=== PATIENT | female | born 1985 | race Caucasian/White ===

== ENCOUNTER → 2016-06-29 | Outpatient (REF) | payer OTHER | LOC: M LAB REF 16:50 | PROVIDERS: ATTEND Specialist | DX: Z34.83 Encounter for supervision of other normal pregnancy, third trimester (principal) ==

== ENCOUNTER 2016-07-06 23:32 | Inpatient (IN) | payer OTHER ==
[~2016-07-06] VITALS: Ht 172.7 cm; Wt 113.0 kg
[2016-07-07] MEDS ORDERED: PRENTAB9 PO (00:46)
[2016-07-07] MEDS ORDERED: LR 1,000 ML IV SCH (01:23)
[2016-07-07] MEDS ORDERED: LACTATED RINGER'S 1000 ML IV STA (01:23)
[2016-07-07] MEDS ORDERED: BUTORPHANOL 2 MG/ML INJ (J0595) IV ONE (01:30)
[2016-07-07] MEDS ORDERED: PROMETHAZINE INJ 25 MG/ML VIAL (J2550) IM ONE (01:30)
[2016-07-07 01:46] LABS: MEAN CORPUSCULAR HEMOGLOBIN 27.3 pg (27.0-33.0); MEAN CORPUSCULAR HGB CONC 33.6 g/dl (32.0-36.5); MEAN CORPUSCULAR VOLUME 81.3 fl (80.0-96.0); RED CELL DISTRIBUTION WIDTH 13.3 % (11.5-14.5); WHITE BLOOD COUNT 16.7 K/mm3 (4.0-10.0)
[2016-07-07] MEDS ORDERED: OXYTOCIN DRIP 30 UNITS in APPROPRIATE DILUENT 1 EA IV SCH (02:07)
[2016-07-07] MEDS ORDERED: RHOGAM 300 MCG (1500 IU) INJ (J2790) IM SCH (02:15)
[2016-07-07] MEDS ORDERED: PROMETHAZINE 25 MG TAB PO PRN (02:15)
[2016-07-07] MEDS ORDERED: DOCUSATE SODIUM 100 MG CAP PO PRN (02:15)
[2016-07-07] MEDS ORDERED: DIBUCAINE 1% OINTMENT 30GM TOP PRN (02:15)
[2016-07-07] MEDS ORDERED: ONDANSETRON 4MG/2ML VIAL (J2405) IV PRN (02:15)
[2016-07-07] MEDS ORDERED: MEASLES,MUMPS,RUBELLA VACCINE INJ (MMR-II) (90707) SC SCH (02:15)
[2016-07-07 04:03] VITALS: BP 130/60
[2016-07-07 06:15] VITALS: BP 132/65
[2016-07-07] MEDS ORDERED: PRENATAL VITAMIN TAB PO SCH (09:00)
[2016-07-07] MEDS: ACETAMINOPHEN 500 MG TAB PO PRN ×2 (11:23→16:47)
[2016-07-07 18:00] VITALS: BP 128/72
[2016-07-07] MEDS ORDERED: OXYTOCIN INJ 10 UNITS/ML VIAL (J2590) As Ordered ONE (18:19)
[2016-07-07] MEDS: PRENATAL VITAMIN TAB PO SCH (19:55)
[2016-07-07] MEDS: IBUPROFEN 800 MG TAB PO PRN (21:19)
[2016-07-08] MEDS: LR 1,000 ML IV SCH ×3 (02:07→18:07)
[2016-07-08 05:43] VITALS: BP 133/73
[2016-07-08] MEDS: IBUPROFEN 800 MG TAB PO PRN ×2 (08:17→16:11)
[2016-07-08] MEDS: guaiFENesin DM LIQ 10ML UD PO PRN ×2 (17:26→21:42)
[2016-07-08 18:00] VITALS: BP 137/63
[2016-07-08] MEDS: PRENATAL VITAMIN TAB PO SCH (21:42)
[2016-07-09] MEDS: LR 1,000 ML IV SCH ×3 (02:07→07:35)
[2016-07-09] MEDS: ACETAMINOPHEN 500 MG TAB PO PRN (04:42)
[2016-07-09] MEDS ORDERED: ACETAMINOPHEN TAB 650MG DOSE (2X325MG) PO ONE (04:45)
[2016-07-09 05:52] VITALS: BP 139/66
[2016-07-09] MEDS ORDERED: IBUP-1114 PO (09:13)
[2016-07-09] MEDS ORDERED: ACET50TA PO (09:13)
[2016-07-09] MEDS ORDERED: ROBIMIS PO (09:15)
== END 2016-07-09 11:37 | disposition home or self-care (01) | DRG 775 ==
LOC: M LDO 23:32 → M LDI 07-07 00:51 → M OBS 07-07 04:00
PROVIDERS: ADMIT Obstetrics & Gynecology; ATTEND Obstetrics & Gynecology
PROC: 10E0XZZ Delivery of Products of Conception, External Approach (ICD-10-PCS; principal; 2016-07-07)
DX: O62.3 Precipitate labor (principal); Z3A.37 37 weeks gestation of pregnancy; O99.214 Obesity complicating childbirth; Z68.33 Body mass index [BMI] 33.0-33.9, adult; E66.9 Obesity, unspecified; Z37.0 Single live birth

== ENCOUNTER 2017-01-29 10:02 | Emergency (ER) | payer OTHER ==
[~2017-01-29] VITALS: Ht 172.7 cm; Wt 109.7 kg
[~2017-01-29 10:02] MED LIST: ACET50TA PO; IBUP-1114 PO; PRENTAB9 PO; ROBIMIS PO
[2017-01-29] MEDS ORDERED: CLAR10CA3 PO (10:14)
[2017-01-29] MEDS ORDERED: LIDOCAINE 2% W/EPIN INJ 20ML **PRES FREE INJ ONE (11:30)
[2017-01-29] MEDS ORDERED: LIDOCAINE 2% MDV 20 ML VIAL SC ONE (11:45)
[2017-01-29 13:19] VITALS: BP 150/82
== END 2017-01-29 13:20 | disposition home or self-care (01) ==
LOC: M ED 10:02
DX: N76.4 Abscess of vulva (principal); Z79.899 Other long term (current) drug therapy; Z88.0 Allergy status to penicillin; Z88.8 Allergy status to other drugs, medicaments and biological substances; Z87.42 Personal history of other diseases of the female genital tract

== ENCOUNTER 2017-05-01 20:13 | Emergency (ER) | payer OTHER ==
[~2017-05-01] VITALS: Ht 172.7 cm; Wt 107.3 kg
[~2017-05-01 20:13] MED LIST changes: +CLAR10CA3 PO
[2017-05-01 20:21] VITALS: BP 136/76
[2017-05-01] MEDS ORDERED: TYLE500T78 PO (20:25)
[2017-05-01] MEDS ORDERED: MULTLIQ7 PO (20:25)
[2017-05-01] MEDS ORDERED: LEVA1TAB2 PO (21:37)
[2017-05-01] MEDS ORDERED: DIFL150T PO (21:39)
== END 2017-05-01 21:46 | disposition home or self-care (01) ==
LOC: M ED 20:13
DX: N90.7 Vulvar cyst (principal); Z79.899 Other long term (current) drug therapy; Z88.0 Allergy status to penicillin

== ENCOUNTER 2017-06-10 13:11 | Day surgery (SDC) | payer OTHER ==
[2017-06-10] MEDS: LR 1,000 ML IV (13:50)
[2017-06-10] MEDS ORDERED: MIDAZOLAM INJ 2 MG/2 ML VIAL (J2250) As Ordered (13:51)
[2017-06-10 13:58] LABS: HEMATOCRIT 40.6 % (36.0-47.0); HEMOGLOBIN 13.6 g/dl (12.0-16.0); MEAN CORPUSCULAR HEMOGLOBIN 27.5 pg (27.0-33.0); MEAN CORPUSCULAR HGB CONC 33.5 g/dl (32.0-36.5); MEAN CORPUSCULAR VOLUME 82.2 fl (80.0-96.0); PLATELET COUNT, AUTOMATED 431 10^3/uL (150-450); RED BLOOD COUNT 4.94 10^6/uL (4.00-5.40); RED CELL DISTRIBUTION WIDTH 12.5 % (11.5-14.5); WHITE BLOOD COUNT 18.7 10^3/uL (4.0-10.0)
[2017-06-10] MEDS ORDERED: CLINDAMYCIN 900 MG in APPROPRIATE DILUENT 1 EA IV (14:00)
[2017-06-10] MEDS ORDERED: fentaNYL 100 MCG/2 ML INJECTION (J3010) As Ordered ×2 (14:14→15:10)
[2017-06-10 14:26] LABS: HCG, SERUM QUANTITATIVE < 1.0 MIU/ML
[2017-06-10] MEDS ORDERED: KETOROLAC 60 MG/2 ML VIAL (J1885) As Ordered ×2 (14:54)
[2017-06-10] MEDS ORDERED: ONDANSETRON 4MG/2ML VIAL (J2405) As Ordered (14:54)
[2017-06-10] MEDS ORDERED: dexameTHASONE 4 MG/ML 1ML VIAL (J1100) As Ordered (14:54)
[2017-06-10] MEDS ORDERED: ROCURONIUM BROMIDE 50 MG/5 ML VIAL As Ordered (15:02)
[2017-06-10] MEDS ORDERED: PROPOFOL 200 MG/20 ML VIAL As Ordered (15:02)
[2017-06-10] MEDS ORDERED: GLYCOPYRROLATE INJ 0.2 MG/ML 2 ML VIAL As Ordered (15:03)
[2017-06-10] MEDS ORDERED: NEOSTIGMINE 10 MG/10 ML VIAL (J2710) As Ordered (15:03)
[2017-06-10] MEDS ORDERED: LIDOCAINE 2% INJ 100 MG/5 ML SDV (FOR ANES.) As Ordered (15:03)
[2017-06-10] MEDS: BUPIVACAINE HCL 0.25% 30 ML VIAL As Ordered (15:18)
[2017-06-10] MEDS: ESTROGENS VAGINAL CREAM 30GM As Ordered (15:18)
[2017-06-10] MEDS ORDERED: LR 1,000 ML IV ×2 (16:15)
[2017-06-10] MEDS ORDERED: PERCOCET 5MG/325MG TAB PO (16:15)
[2017-06-10] MEDS ORDERED: fentaNYL 100 MCG/2 ML INJECTION (J3010) IV (16:15)
[2017-06-10] MEDS ORDERED: ONDANSETRON 4MG/2ML VIAL (J2405) IV (16:15)
== END 2017-06-10 20:30 | disposition home or self-care (01) ==
LOC: M SDC 20:30
DX: N75.1 Abscess of Bartholin's gland (principal); E66.9 Obesity, unspecified; Z88.1 Allergy status to other antibiotic agents; Z88.8 Allergy status to other drugs, medicaments and biological substances
CPT/HCPCS: 56440

== ENCOUNTER → 2017-12-14 | Outpatient (REF) | payer OTHER ==
[2017-12-17 14:10] LABS: HPV HYBRID CAPTURE II Negative (Negative)
== END ==
LOC: M LAB REF 13:22
DX: Z01.419 Encounter for gynecological examination (general) (routine) without abnormal findings (principal); Z11.51 Encounter for screening for human papillomavirus (HPV)

== ENCOUNTER → 2017-12-14 | Outpatient (CLI) | payer OTHER ==
[2017-12-14 13:57] LABS: CHOLESTEROL LEVEL 241 MG/DL (<200); CHOLESTEROL RISK RATIO 4.228 (<5); GLUCOSE, FASTING 91 MG/DL (70-100); HDL CHOLESTEROL 57 MG/DL (>40); NON-HDL-C 184 MG/DL; TRIGLYCERIDES LEVEL 95 MG/DL (<150)
== END ==
LOC: M SMT 10:51
DX: E66.3 Overweight (principal)
CPT/HCPCS: 82947